=== PATIENT | male | born 1970 | race Caucasian/White ===

== ENCOUNTER 2022-02-11 04:14 | Emergency (ER) | payer SELFPAY ==
[~2022-02-11] VITALS: Ht 180.3 cm; Wt 101.0 kg
[2022-02-11 05:04] VITALS: BP 151/84
== END 2022-02-11 07:08 | disposition home or self-care (01) ==
LOC: ER 04:14
DX: S60.511A Abrasion of right hand, initial encounter (principal); X58.XXXA Exposure to other specified factors, initial encounter; Y93.89 Activity, other specified; Y92.89 Other specified places as the place of occurrence of the external cause; Y99.8 Other external cause status